=== PATIENT | male | born 1960 | race Two or more races ===

== ENCOUNTER 2017-05-26 17:33 | Emergency (ER) | payer OTHER ==
[~2017-05-26] VITALS: Ht 188 cm; Wt 86.2 kg
[~2017-05-26 17:33] MED LIST: UNOBMED
[2017-05-26] MEDS ORDERED: Bacitracin Oint UD TOPIC ONE (18:30)
[2017-05-26 18:59] VITALS: BP 124/74
[2017-05-26] MEDS ORDERED: levETIRAcetam 1,000mg/NS100ml 100 ML IVPB ONE (19:00)
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
[2017-05-26 19:30] LABS: PROTHROMBIN TIME 10.4 SEC (9.30-11.50)
[2017-05-26] MEDS ORDERED: Tetanus/Diptheria/Pertussis Vaccine 0.5ml Syr IM ONE (19:30)
[2017-05-26 19:45] LABS: BASOPHILS % (AUTO) 1.5 % (0.0-2.0); EOSINOPHILS % (AUTO) 3.5 % (0.0-3.0); LYMPHOCYTES % (AUTO) 22.7 % (20.0-45.0); MEAN CORPUSCULAR HEMOGLOBIN 34.3 PG (27.0-31.0); MEAN CORPUSCULAR HGB CONC 35.9 G/DL (32.0-36.0); MEAN CORPUSCULAR VOLUME 96 FL (80-99); MEAN PLATELET VOLUME 7.7 FL (6.5-10.1); NEUTROPHILS % (AUTO) 61.4 % (45.0-75.0); PLATELET COUNT 220 K/UL (150-450); RED CELL DISTRIBUTION WIDTH 11.4 % (11.6-14.8); WHITE BLOOD COUNT 7.2 K/UL (4.8-10.8)
[2017-05-26 19:51] LABS: ALANINE AMINOTRANSFERASE 27 U/L (3-41); ALBUMIN/GLOBULIN RATIO 1.7 (1.0-2.7); ANION GAP 15 (5-15); ASPARTATE AMINO TRANSFERASE 50 U/L (5-40); CALCIUM 7.6 mg/dL (8.6-10.2); CARBON DIOXIDE 23 mEQ/L (20-30); CHLORIDE 101 mEQ/L (98-107); CREATININE 0.6 mg/dL (0.7-1.2); GLOMERULAR FILTRATION RATE > 60 mL/min (>60); HEMOLYSIS 10; POTASSIUM 3.5 mEQ/L (3.4-4.9); SODIUM 139 mEQ/L (135-145)
[2017-05-26 20:45] VITALS: BP 126/69
--- NOTE | 2017-05-27 09:21 | Diagnostic Imaging Report ---
Indications: Altered mental status Technique: Spiral acquisitions obtained through the brain. Angled axial and coronal 5 x 5 mm slices were reconstructed. Total dose length product 1552 mGycm. CTDI vol(s) 70 mGy. Dose reduction achieved using automated exposure control Comparison: None Findings: There is a small hypoattenuating right anterior convexity subdural hematoma, density which is slightly greater than CSF but less than white matter. This measures up to 6 mm thick. This results in slight attenuation of the right lateral ventricle, minimal attenuation of ipsilateral extra-axial CSF spaces, and possibly one or 2 mm of midline shift. No acute blood is evident. No acute intracranial or subarachnoid hemorrhage. Normal caliber ventricles and extra-axial CSF spaces otherwise. Normal malin-white differentiation. There is ethmoid sinus mucosal disease. Intact calvarium. There is a right frontal scalp hematoma. There is a metallic foreign body within the periorbital scalp just medial to the left orbit. Impression: Findings compatible with late subacute right frontal subdural hematoma. This results in mild mass effect as described above No acute hemorrhage demonstrated Evidence of right supraorbital scalp soft tissue injury. Foreign body within the left periorbital scalp medially Sinus disease This agrees with the preliminary interpretation provided overnight by [facility] service. The CT scanner at [facility] is accredited by the [employer] and the scans are performed using protocols designed to limit radiation exposure to as low as reasonably achievable to attain images of sufficient resolution adequate for diagnostic evaluation.
--- NOTE | 2017-05-27 10:38 | Diagnostic Imaging Report ---
Indication: PAIN Technique: One view of the chest Comparison: none Findings: Lungs and pleural spaces are clear. Heart size is normal. Impression: No acute process
== END 2017-05-26 20:51 | disposition short-term general hospital (02) ==
LOC: EDBD 17:33 → EMR 19:11
DX: S06.5X0A Traumatic subdural hemorrhage without loss of consciousness, initial encounter (principal); S00.81XA Abrasion of other part of head, initial encounter; Z23 Encounter for immunization; Z72.0 Tobacco use; R07.9 Chest pain, unspecified; Z88.8 Allergy status to other drugs, medicaments and biological substances; W03.XXXA Other fall on same level due to collision with another person, initial encounter; Y93.9 Activity, unspecified; Y92.9 Unspecified place or not applicable
CPT/HCPCS: 36415; 70450; 71010; 80053; 80329; 85025; 85610; 85730; 86850; 86900; 86901; 90471; 90715; 96360; 96372; 96374; 99285; J1953